=== PATIENT | female | born 1945 | race African-American/Black ===

== ENCOUNTER 2017-05-08 11:58 | Emergency (ER) | payer OTHER ==
[2017-05-08 12:07] VITALS: BP 154/56; PULSE 69; TEMP 98.4; BMI 34.4
--- NOTE | 2017-05-08 12:55 | PDOC ---
History of Present Illness - General Chief Complaint: Pain Stated Complaint: LEG PAIN Time Seen by Provider: 05/08/17 12:24 History Source: Patient Exam Limitations: No Limitations - History of Present Illness Initial Comments: 05/08/17 12:55 Leg pain. had an acute onset of swelling and pain 2 days ago that started in her thigh and extended down into her calf. States elevated and use ice packs which helped resolve some of the swelling. But states pain has persisted. Denies any changes in exercise or activity, no heavy lifting or strenuous activity recently, denies any recent travel or long distance/ prolonged episodes of sitting. Denies any history of blood clots or deep vein thrombosis, no history of cellulitis in either leg. had a significant fracture 2 years ago in her tibia which resolved and wonders if his related. DEnies tingLing to hands or feet, no fevers or recent URI, no one else at home ill, and has not discussed with PMD Occurred: reports: just prior to arrival Severity: reports: mild, moderate Pain Location: reports: lower extremity (right leg) Modifying Factors: improves with: None, cold therapy Loss of Consciousness: no loss of consciousness Associated Symptoms (Fall): denies symptoms Past History - Travel Traveled outside of the country in the last 30 days: No Close contact w/someone who was outside of country & ill: No - Past Medical History Allergies/Adverse Reactions: Allergies Allergy/AdvReac Type Severity Reaction Status Date / Time No Known Allergies Allergy Verified 05/08/17 12:04 Home Medications: Ambulatory Orders Acetaminophen W/ Codeine #3 [Tylenol # 3 -] 1 tab PO Q6H PRN #20 tablet Glimepiride 4 mg PO DAILY 11/10/14 Insulin Lispro Protamin/Lispro [Humalog Mix 75-25 Kwikpen] 100 ml SQ ASDIR 11/10 Lidocaine 5% Patch [Lidoderm -] 1 patch TP DAILY #7 patch 11/10/14 Diabetes: Yes HTN: Yes - Psycho/Social/Smoking Cessation Hx Anxiety: No Suicidal Ideation: No Smoking History: Never smoked Hx Alcohol Use: No Drug/Substance Use Hx: No Substance Use Type: None Trauma Specific PMHX - Complaint Specific PMHX Arthritis: No Back Injury: Yes Neck Injury: No Hx Sacro Iliac Joint Dysfunction: No Review of Systems - Review of Systems Able to Perform ROS?: Yes Is the patient limited Nepalese proficient: Yes Constitutional: Yes: See HPI, Malaise. No: Symptoms Reported, Chills, Fever HEENTM: No: Symptoms Reported Respiratory: Yes: See HPI. No: Symptoms reported, Cough, Shortness of Breath, Wheezing ABD/GI: No: Symptoms Reported : No: Symptoms Reported Musculoskeletal: Yes: Symptoms Reported, See HPI, Muscle Pain Integumentary: Yes: See HPI. No: Symptoms Reported, Bruising, Erythema, Flushing, Pruritus, Rash Neurological: Yes: See HPI. No: Symptoms reported, Headache, Paresthesia All Other Systems: Reviewed and Negative *Physical Exam - Vital Signs Last Vital Signs Temp Pulse Resp BP Pulse Ox 98.4 F 69 19 154/56 95 05/08/17 12:04 05/08/17 12:04 05/08/17 12:04 05/08/17 12:04 05/08/17 12:04 - Physical Exam General Appearance: Yes: Nourished, Appropriately Dressed. No: Apparent Distress HEENT: positive: STARR, Normal ENT Inspection, Normal Voice, TMs Normal, Pharynx Normal Neck: positive: Supple. negative: Tender, Lymphadenopathy (R), Lymphadenopathy (L) Respiratory/Chest: positive: Lungs Clear, Normal Breath Sounds. negative: Crackles, Rales, Wheezing Cardiovascular: positive: Regular Rate Gastrointestinal/Abdominal: positive: Soft. negative: Tender Extremity: positive: Normal Capillary Refill. negative: Normal Range of Motion (mild ), Pedal Edema (palpable pulses to feet however +1, no true peripheral edema, but reproduced tenderness along extending into popliteal fossa and posterior aspect of right thigh.), Swelling Integumentary: positive: Normal Color, Warm. 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, Fully Oriented, Alert, Normal Mood/ Affect, Normal Response, Motor Strength 5/5 ED Treatment Course - RADIOLOGY Radiology Studies Ordered: Category Date Time Status DUPLEX VASCUL US-1 LEG [US] Stat Ultrasound 05/08/17 12:38 Ordered Medical Decision Making - Medical Decision Making 05/08/17 13:34 US negative for DVT or popliteal / bakers cyst, will treat fori strain and conservatively *DC/Admit/Observation/Transfer Diagnosis at time of Disposition: Muscle strain - Discharge Dispostion Disposition: HOME Condition at time of disposition: Stable Admit: No - Patient Instructions Printed Discharge Instructions: DI for Muscle Strain Additional Instructions: Rest, ice to area on and off for 15 minutes 4-6 times a day Avoid heavy lifting or exercise until pain and swelling is resolved or until further directed Keep area highly elevated to reduce swelling Followup with Private Doctor/orthopedist in one to 2 days if not improving, if significantly improved may wait one week for followup with orthopedist May use ibuprofen 2-200 mg tablets every 6 hours as needed for pain
== END 2017-05-08 13:43 | disposition home or self-care (01) ==
LOC: JERFT 11:58
DX: S76.911A Strain of unspecified muscles, fascia and tendons at thigh level, right thigh, initial encounter (principal); S86.811A Strain of other muscle(s) and tendon(s) at lower leg level, right leg, initial encounter; X58.XXXA Exposure to other specified factors, initial encounter; Y93.89 Activity, other specified
CPT/HCPCS: 93971-TC; 99281-25

== ENCOUNTER 2020-10-06 04:46 | Day surgery (SDC) | payer OTHER, MEDICARE ==
[2020-10-03 09:10] VITALS: BMI 31.8
[2020-10-06 08:43] VITALS: TEMP 97.3
[2020-10-06 09:43] LABS: BASO % 0.5 % (0-2.0); EOS % 0.7 % (0-4.5); HEMOGLOBIN 12.2 GM/dL (10.7-15.3); LYMPH % 23.6 % (8-40); MCH 27.5 pg (25.7-33.7); MCHC 33.1 g/dl (32.0-36.0); MEAN CELL VOLUME 83.3 fl (80-96); MEAN PLT VOLUME 8.3 fl (7.5-11.1); MONO % 17.6 % (3.8-10.2); NEUT % 57.6 % (42.8-82.8); PLATELET COUNT 183 K/MM3 (134-434); RBC 4.44 M/mm3 (3.60-5.2); RDW 13.8 % (11.6-15.6); WHITE BLOOD COUNT 3.6 K/mm3 (4.0-10.0)
[2020-10-06 09:50] LABS: INR 0.97 (0.83-1.09); PROTHROMBIN TIME (PATIENT) 11.9 SEC (9.7-13.0)
[2020-10-06 09:59] VITALS: BP 150/63; PULSE 60
[2020-10-06 10:01] LABS: POTASSIUM 4.2 mmol/L (3.5-5.1)
[2020-10-06 10:04] LABS: ALBUMIN 3.3 g/dl (3.4-5.0); BLOOD UREA NITROGEN 15.8 mg/dL (7-18)
[2020-10-06 10:07] LABS: CREATININE 1.2 mg/dL (0.55-1.3)
[2020-10-06 10:09] LABS: BILIRUBIN,TOTAL 0.5 mg/dL (0.2-1); TOT PROT 7.1 g/dl (6.4-8.2)
[2020-10-07 16:08] LABS: MITOCHONDRIAL AB <20.0 Units (0.0-20.0)
[2020-10-10 21:08] LABS: HEP B CORE AB, TOT Negative (Negative)
== END 2020-10-06 09:52 | disposition home or self-care (01) ==
LOC: JASU-ENDO 04:46
PROVIDERS: ATTEND Internal Medicine Gastroenterology
PROC: 0DBP8ZX Excision of Rectum, Via Natural or Artificial Opening Endoscopic, Diagnostic (ICD-10-PCS; 2020-10-06)
PROC: 0DBL8ZX Excision of Transverse Colon, Via Natural or Artificial Opening Endoscopic, Diagnostic (ICD-10-PCS; 2020-10-06)
PROC: 0DJD8ZZ Inspection of Lower Intestinal Tract, Via Natural or Artificial Opening Endoscopic (ICD-10-PCS; principal; 2020-10-06 08:00)
DX: D12.3 Benign neoplasm of transverse colon (principal); K62.1 Rectal polyp; K64.8 Other hemorrhoids; Z86.010 Personal history of colon polyps
CPT/HCPCS: 36415; 80053; 82103; 82105; 82390; 82728; 82962; 83516; 83550; 85025; 85610; 86038; 86480; 86704; 86705; 86706; 86707; 87522; 88305-TC